=== PATIENT | male | born 1970 | race Caucasian/White ===

== ENCOUNTER 2023-01-10 18:46 | Emergency (ER) | payer OTHER | END 2023-01-10 19:48 | disposition home or self-care (01) | LOC: ERS 18:46 | DX: S40.011A Contusion of right shoulder, initial encounter (principal); S30.0XXA Contusion of lower back and pelvis, initial encounter; V89.2XXA Person injured in unspecified motor-vehicle accident, traffic, initial encounter | CPT/HCPCS: 72100 ==